=== PATIENT | female | born 1965 | race Caucasian/White ===

== ENCOUNTER → 2016-05-29 | Outpatient (CLI) | payer MEDICAID ==
[~2016-05-29] MED LIST: CIPRO DPS500 MG PO; CLOZAPINE100 MG PO; CLOZAPINE200 MG PO; CLOZAPINE50 MG PO; EUCERIN CREME120 GM TP; EUCERIN CREME57 GM TP; FENOFIBRATE145 MG PO; GENERLAC10 GM/15 M PO; KLOR-CON M2020 ME1 PO; MIRALAX PACKET17 GM PO; MYCOSTATIN PWD15 GM TP; OMNICEF DPS300 MG PO; POLYETHYLENE GL17 GM PO; PRILOSEC DPS20 MG PO; PROZAC DPS20 MG PO; TOPAMAX100 MG PO; TOPAMAX200 MG PO; TOPROL XL DPS25 MG PO; VIMPAT50 MG PO; VITAMIN D1000 UNI1 PO; VITAMIN D31000 UNIT PO
== END | disposition home or self-care (01) ==
LOC: RAD.S 12:59
DX: E66.09 Other obesity due to excess calories (principal)

== ENCOUNTER → 2016-08-07 | Outpatient (CLI) | payer MEDICAID | END | disposition home or self-care (01) | LOC: RAD.S 11:02 | DX: M79.605 Pain in left leg (principal) ==

== ENCOUNTER 2016-08-09 13:12 | Emergency (ER) | payer MEDICAID ==
[~2016-08-09 13:12] MED LIST changes: -CLOZAPINE200 MG PO; -MYCOSTATIN PWD15 GM TP; -POLYETHYLENE GL17 GM PO; -VITAMIN D1000 UNI1 PO
--- NOTE | 2016-08-19 07:02 | ER ---
ADMIT: 08/09/2016 RM/LOC: ER [facility] MR#: [id number] [id number] [place], [place] [id number] KAROLINA SWENSON [address] [place] [address] Emergency Room Report SEX: F AGE: 50 : 1965 DATE: 08/09/2016 ADDENDUM: A 50-year-old female, history of meningioma was getting an MRI done as an outpatient today, which she states she was feeling anxious and had some chest pain while they laid her down to get the MR. She states she does have a history of anxiety, PTSD, and schizophrenia. She was apparently supposed to take an antianxiety medication, but reports that she did not take it prior to her MR. By the time she got to the ER, her symptoms of chest pain had resolved. She has a history of COPD secondary to smoking, which she quit a couple months ago. She also has hyperlipidemia and is obese. I did check an EKG on the patient, which showed sinus rhythm, rate of 65, no signs of acute ST-elevation or KS. Cardiac enzymes were normal. CBC and chemistries were also normal. The patient remained chest pain-free in the ER, and she is discharged home to follow up with Dr. Hill if symptoms return. She also called to reschedule to get her MRI, and I notified Dr. Cordova, who had ordered the MR of her brain. DIAGNOSES: 1. Anxiety. 2. Atypical chest pain. Darrel Sam MD/ gabriela JOB #: [id number] CC: Darrel Sam MD, Attending Physician Nayan Hill MD, Family Physician
[2016-08-29] MEDS ORDERED: CLOZAPINE200 MG PO (14:45)
[2016-08-29] MEDS ORDERED: PROZAC DPS20 MG PO (14:46)
[2016-08-29] MEDS ORDERED: MYCOSTATIN PWD15 GM TP (14:46)
[2016-08-29] MEDS ORDERED: GENERLAC10 GM/15 M PO (14:46)
[2016-08-29] MEDS ORDERED: FENOFIBRATE145 MG PO (14:46)
[2016-08-29] MEDS ORDERED: VIMPAT50 MG PO (14:46)
[2016-08-29] MEDS ORDERED: VITAMIN D1000 UNI1 PO (14:47)
[2016-08-29] MEDS ORDERED: KLOR-CON M2020 ME1 PO (14:47)
[2016-08-29] MEDS ORDERED: POLYETHYLENE GL17 GM PO (14:47)
== END 2016-08-09 16:00 | disposition home or self-care (01) ==
LOC: ER 13:12 → RAD.S 13:12 → EDSTATUS 14:30 → RAD.S 14:30 → ER 16:00
DX: F41.9 Anxiety disorder, unspecified (principal); R07.89 Other chest pain; F43.10 Post-traumatic stress disorder, unspecified; F20.9 Schizophrenia, unspecified; E78.5 Hyperlipidemia, unspecified; E66.9 Obesity, unspecified; R56.9 Unspecified convulsions; Z88.2 Allergy status to sulfonamides; Z88.8 Allergy status to other drugs, medicaments and biological substances; Z87.891 Personal history of nicotine dependence